=== PATIENT | male | born 1985 | race Caucasian/White ===

== ENCOUNTER → 2018-11-26 | Outpatient (CLI) | payer OTHER ==
[~2018-11-26] MED LIST: AMOX500 PO; CEFD300 PO; CODGUAEL PO; Colace100 MG PO; IBUP600 PO; OXYACE5T PO; Percocet 5-3251 EACH PO; Silvadene20 GM TOP
== END | disposition home or self-care (01) ==
LOC: LAB SHORT 16:00 → LAB 16:00
DX: R30.0 Dysuria (principal)
CPT/HCPCS: 87086

== ENCOUNTER 2019-06-10 12:28 | Emergency (ER) | payer OTHER ==
[~2019-06-10] VITALS: Ht 182.9 cm; Wt 86.2 kg
[2019-06-10] MEDS ORDERED: Vibramycin100 MG PO (13:32)
[2019-06-10] MEDS ORDERED: Robaxin-750750 MG PO (13:39)
== END 2019-06-10 14:02 | disposition home or self-care (01) ==
LOC: ER 12:28
DX: N45.1 Epididymitis (principal); M62.838 Other muscle spasm; Z88.5 Allergy status to narcotic agent
CPT/HCPCS: 76870; 96372; 99284-25; J0696

== ENCOUNTER 2021-09-01 16:12 | Emergency (ER) | payer MEDICARE, OTHER ==
[~2021-09-01] VITALS: Ht 185.4 cm; Wt 102.1 kg
[~2021-09-01 16:12] MED LIST changes: +Robaxin-750750 MG PO; +Vibramycin100 MG PO
[2021-09-01] MEDS ORDERED: CEPH500 PO (19:15)
== END 2021-09-01 19:25 | disposition home or self-care (01) ==
LOC: ER 16:12
DX: S61.213A Laceration without foreign body of left middle finger without damage to nail, initial encounter (principal); S66.303A Unspecified injury of extensor muscle, fascia and tendon of left middle finger at wrist and hand level, initial encounter; W25.XXXA Contact with sharp glass, initial encounter; Z23 Encounter for immunization; Z88.5 Allergy status to narcotic agent; Z79.899 Other long term (current) drug therapy
CPT/HCPCS: 36415; 73140; 90714; J0690